=== PATIENT | female | born 1990 | race Caucasian/White ===

== ENCOUNTER 2023-07-16 14:15 | Emergency (ER) | payer BC, SELFPAY ==
[2023-07-16 14:17] VITALS: BP 120/77; PULSE 71; RESP 18; TEMP 36.8; O2SAT 98; BMI 22.5
--- NOTE | 2023-07-16 14:59 | US_ITS ---
Patient: JOAN SEPULVEDA Facility:?[facility] Patient ID:?[id number] Site Patient ID:?[id number]. Site :?[id number] Study:?US-Extremity Right DVT-07/16/2023 3:45:41 PM Ordering Physician:[email or web address] Final Report: INDICATION: Right leg pain. Status post ankle injury. COMPARISON: None. TECHNIQUE: A compression venous ultrasound exam was performed of the right lower extremity using webster-scale imaging, color Doppler, and spectral Doppler analysis. FINDINGS: Sonographic imaging of the right lower extremity demonstrates normal compressibility and color Doppler venous blood flow within the common femoral, femoral, deep femoral, and proximal greater saphenous veins. At a lower level the popliteal, peroneal, and posterior tibial veins also show normal compressibility and color Doppler venous blood flow. Limited imaging of the contralateral groin demonstrates a normal spectral waveform and color Doppler venous blood flow within the left common femoral vein. IMPRESSION: Negative for acute DVT in the right lower extremity. Dictated by Ailyn Santo MD @ 07/17/2023 12:59:54 AM Signed by:?Ailyn Santo MD @07/17/2023 12:59:54 AM (Electronic Signature)
[2023-07-16 15:58] LABS: Chloride* 103 mmol/L (96-114)
[2023-07-16 15:59] LABS: Potassium* 3.8 mmol/L (3.6-5.1); Sodium* 140 mmol/L (135-149)
[2023-07-16 16:02] LABS: Anion Gap 10 mEq/L (7-15); Blood Urea Nitrogen* 16 mg/dL (5-24); Carbon Dioxide* 27 mmol/L (20-32); Creatinine* 0.6 mg/dL (0.5-1.5); Est. Creatinine Clearance* 117.76; Estimated Glomerular Filt Rate 120 ml/min
[2023-07-16 16:03] LABS: Calcium* 9.6 mg/dL (8.4-10.6); Glucose* 105 mg/dL (60-115)
[2023-07-16 16:08] LABS: C Reactive Protein* < 0.5 mg/dL (0.5-1.0)
[2023-07-16 16:30] LABS: D Dimer Quantitative* 0.27 ug/ml (0.00-0.50)
[2023-07-16 17:02] LABS: Basophils Absolute Auto 0.03 K/uL (0.00-0.30); Basophils Percent Auto 0.5 % (0.0-3.0); Eosinophils Absolute Auto 0.13 K/uL (0.00-0.50); Eosinophils Percent Auto 2.1 % (0.0-7.0); Hematocrit 35.8 % (33.0-51.0); Hemoglobin* 12.8 gm/dL (12.0-16.0); Immature Granulocytes Abs Auto 0.02 K/uL (0.00-0.30); Immature Granulocytes Pct Auto 0.3 %; Lymphocytes Absolute Auto 1.54 K/uL (0.90-2.90); Lymphocytes Percent Auto 25.2 % (20-44); Mean Corpuscular HGB Conc 36 gm/dL (32-36); Mean Corpuscular Hemoglobin 29 pg (26-34); Mean Corpuscular Volume 80 fL (80-100); Monocytes Percent Auto 6.7 % (0.0-11.0); Neutrophils Absolute Auto 3.99 K/uL (1.7-7.0); Neutrophils Percent Auto 65.2 % (42.0-72.0); Platelet Count* 276 K/uL (140-440); RDW Coefficient of Variation % 13.2 % (11.5-15.5); Red Blood Count 4.48 m/uL (4.00-5.20); White Blood Count* 6.12 K/uL (4.50-11.00)
[2023-07-16 17:04] LABS: Slide Review Reflex No
--- NOTE | 2023-07-16 17:30 | ED_ITS ---
HPI - General Adult General Chief complaint: Extremity Pain/Injury, Lower Stated complaint: R ankle pain, numb r arm, artery pain Time Seen by Provider: 07/16/23 14:24 History of Present Illness HPI narrative: This 33-year-old female sprained her ankle about 2 weeks ago and was at a [place] orthopedic appointment this morning for follow-up. It was noted that her right leg was cold compared to her left leg. She also reported some tingling sensations in her right arm. She does have symptoms typical of Raynaud's phenomenon but this has not been officially diagnosed. She does report extreme sensitivity to cold with her extremities turning red white and blue over various times in that process of rewarming. She was seen by an orthopedic evaluation specialist regarding her ankle sprain and was record mended to come here because of the cold sensation in her right leg. Related Data Previous Rx's Medication Instructions Recorded amlodipine 5 mg tablet 5 mg PO DAILY #30 tabs 07/16/23 Allergies Allergy/AdvReac Type Severity Reaction Status Date / Time Sulfa (Sulfonamide Allergy Verified 07/16/23 14:23 Antibiotics) Review of Systems Status of ROS: Reports: 10 or more systems reviewed and unremarkable except as noted in History and below Narrative: Constitutional: No fevers, no weight gain or loss. Eyes: No discharge. No vision changes. HENT: No congestion, no sore throat, no ear pain. Cardiovascular: No chest pain, no palpitations. Respiratory: No shortness of breath, no wheezes, no cough. Gastrointestinal: No abdominal pain, no vomiting, no diarrhea. Genitourinary: No dysuria, no hematuria. Musculoskeletal: Normal range of motion. Right ankle sprain. Skin: No rashes, no pruritis. Neurological: No dizziness, weakness, sensory change, speech change. Endo/Heme/Allergies: No bruising or bleeding. No polydipsia. Pysch: no suicidality, no anxiety, no insomnia. All other systems reviewed and are negative. Exam Narrative: Exam Narrative: Constitutional: Well-developed, well-nourished, no acute distress. HEENT: Normocephalic, atraumatic. Neck: Normal range of motion. Nontender. Supple. Heart: Regular. No murmurs. Normal rate. Intact distal pulses. Lungs: Clear to auscultation. No chest discomfort. No wheezes, rhonchi, or rales. Abdomen: Normal bowel sounds. Nontender. No rebound tenderness. Genitalia: Deferred. Back: No midline tenderness. Normal range of motion. Extremities: Normal range of motion. Right ankle sprain. Right leg is definitely cooler compared to left leg but there is good color and capillary refill is present. Right upper extremity is same warmth as the left. There is no sign of unilateral swelling or pain except for the sprain ankle. Skin: Intact. No rash. Warm. No erythema or pallor. Neurologic: No altered sensation. No weakness. Alert and oriented. Psychiatric: No suicidality. No anxiety or depression. No insomnia. Nursing notes and vitals signs are reviewed. Const: Vital Signs, click to edit/add: Vital Signs - 24 hr 07/16/23 14:17 Temperature 98.3 F Pulse Rate [Right Pulse Oximeter] 71 Respiratory Rate 18 Blood Pressure [Ri ght Upper Arm] 120/77 Pulse Oximetry 98 Oxygen Delivery Me thod Room Air Course Vital Signs Vital signs: Initial Vital Signs Temperature 98.3 F 07/16/23 14:17 Temperature Source Temporal Artery Scan 07/16/23 14:17 Pulse Rate 71 07/16/23 14:17 Respiratory Rate 18 07/16/23 14:17 Blood Pressure 120/77 07/16/23 14:17 Blood Pressure Mean 91 07/16/23 14:17 Blood Pressure Position Sitting 07/16/23 14:17 Pulse Oximetry 98 07/16/23 14:17 Oxygen Delivery Method Room Air 07/16/23 14:17 Vital Signs Temperature 98.3 F 07/16/23 14:17 Pulse Rate 71 07/16/23 14:17 Respiratory Rate 18 07/16/23 14:17 Blood Pressure 120/77 07/16/23 14:17 Pulse Oximetry 98 07/16/23 14:17 Oxygen Delivery Method Room Air 07/16/23 14:17 Temperature 98.3 F 07/16/23 14:17 Pulse Rate 71 07/16/23 14:17 Respiratory Rate 18 07/16/23 14:17 Blood Pressure 120/77 07/16/23 14:17 Pulse Oximetry 98 07/16/23 14:17 Oxygen Delivery Method Room Air 07/16/23 14:17 Medical Decision Making MDM Narrative Medical decision making narrative: This patient comes in with concern about a cold leg and was told she should come in for evaluation to rule out a blood clot. An ultrasound is obtained and shows no evidence of thrombus. There is no sign of vascular abnormality on ultrasound. I did obtain labs and these returned normal for CBC, metabolic panel, C-reactive protein, D-dimer. An Conchita is obtained which is a send out and results are pending. This patient likely has Raynaud's phenomenon. Her lab results and imaging studies today are reassuring. I did provide a prescription for amlodipine 5 mg that can be used hopefully to help attend to her Raynaud's phenomenon. As for wire whole leg feels cool or it is unclear except perhaps some more prominent expression of her nausea is in the context that she finds herself with his sprained ankle 0. Lab Data Labs: Lab Results 07/16/23 Range/Units 15:11 WBC 6.12 (4.50-11.00) K/uL RBC 4.48 (4.00-5.20) m/uL Hgb 12.8 (12.0-16.0) gm/dL Hct 35.8 (33.0-51.0) % MCV 80 (80-100) fL MCH 29 (26-34) pg MCHC 36 (32-36) gm/dL RDW Coeff of Jinny 13.2 (11.5-15.5) % Plt Count 276 (140-440) K/uL Neut % (Auto) 65.2 (42.0-72.0) % Lymph % (Auto) 25.2 (20-44) % Glascock % (Auto) 6.7 (0.0-11.0) % Eos % (Auto) 2.1 (0.0-7.0) % Baso % (Auto) 0.5 (0.0-3.0) % Neut # (Auto) 3.99 (1.7-7.0) K/uL Lymph # (Auto) 1.54 (0.90-2.90) K/uL Glascock # (Auto) 0.40 (0.00-0.90) K/UL Eos # (Auto) 0.13 (0.00-0.50) K/uL Baso # (Auto) 0.03 (0.00-0.30) K/uL Abs Immat Gran (auto) 0.02 (0.00-0.30) K/uL Imm/Tot Granulo (auto) 0.3 % D-Dimer Quant (PE/DVT) 0.27 (0.00-0.50) ug/ml Sodium 140 (135-149) mmol/L Potassium 3.8 (3.6-5.1) mmol/L Chloride 103 (96-114) mmol/L Carbon Dioxide 27 (20-32) mmol/L Anion Gap 10 (7-15) mEq/L BUN 16 (5-24) mg/dL Creatinine 0.6 (0.5-1.5) mg/dL Estimated Creat Clear 117.76 Estimated GFR 120 ml/min Glucose 105 (60-115) mg/dL Calcium 9.6 (8.4-10.6) mg/dL C-Reactive Protein < 0.5 L (0.5-1.0) mg/dL Discharge Plan Discharge Clinical Impression: Raynaud's phenomenon Patient Disposition: Home, Self-Care Condition: Stable Additional Instructions: Take medication as needed and indicated. Follow up with primary MD for ongoing diagnosis and management. Return if worsening. Prescriptions: New amlodipine 5 mg tablet 5 mg PO DAILY Qty: 30 2RF Follow Up/Referrals: Provider,Not a Local [Primary Care Provider] - Stand Alone Forms: [employer] Info Instructions
[2023-07-16 18:00] LABS: Erythrocyte SedimentationRate* 3 mm/hr (2-20)
[2023-07-19 00:54] LABS: Anti-Nuclear Ab(ANA)IgG ELISA None Detected (None Detected)
--- NOTE | 2023-07-23 16:02 | ED.NURSE ---
patient called to find out what lab results are and told patient of these results.
== END 2023-07-16 18:07 | disposition home or self-care (01) ==
PROVIDERS: Emergency Provider Emergency Medicine Emergency Medical Services
DX: I73.00 Raynaud's syndrome without gangrene (principal)
CPT/HCPCS: 36415; 80048; 85025; 85379; 85651; 86039; 86140; 93971; 99283; 99284